=== PATIENT | male | born 1980 | race Caucasian/White ===

== ENCOUNTER 2018-12-31 14:42 | Emergency (ER) | payer BC ==
[~2018-12-31] VITALS: Ht 185.4 cm; Wt 105.2 kg
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
--- NOTE | 2018-12-31 16:05 | NUR ---
pt requesting for a pain med d/t back pain, pt states he is unable to get up to be discharged due to pain. dr. messi trent.
[2018-12-31] MEDS ORDERED: HYDROCODONE/APAP 5/325MG 1 EACH TABLET ONE ×2 (16:06→16:45)
[2018-12-31] MEDS ORDERED: HYDROCODONE/APAP 5/325MG 1 EACH TABLET PO ONE ×2 (16:30→17:00)
[2018-12-31] MEDS ORDERED: DIAZEPAM 5 MG TABLET ONE (16:45)
[2018-12-31] MEDS ORDERED: DIAZEPAM 10 MG TABLET PO ONE (17:00)
--- NOTE | 2018-12-31 17:30 | NUR ---
pt sitting in high fowlers position in bed, able to tolerate pain at this time, pt states "give me a few more minutes i will be able to walk"
--- NOTE | 2018-12-31 18:10 | NUR ---
pt ambulated to bathroom with minimal assist. pt c/o of slight tolerable back pain, not in any distress, -sob. pt states he is ready to be d/c, all paperwork given, iv removed, site benign, no bleeding noted. pt offered w/c, pt insists on walking independently at this time.
[2018-12-31 18:34] VITALS: BP 140/69
== END 2018-12-31 18:34 | disposition home or self-care (01) ==
LOC: ER 14:46
DX: S80.02XA Contusion of left knee, initial encounter (principal); S70.02XA Contusion of left hip, initial encounter; M25.572 Pain in left ankle and joints of left foot; Z88.0 Allergy status to penicillin; Z60.2 Problems related to living alone; V09.20XA Pedestrian injured in traffic accident involving unspecified motor vehicles, initial encounter; Y93.89 Activity, other specified; Y92.488 Other paved roadways as the place of occurrence of the external cause; Y99.8 Other external cause status
CPT/HCPCS: 72100-TC; 72220-TC; 73502; 73552; 73562; 73610-TC